=== PATIENT | female | born 1995 | race Caucasian/White ===

== ENCOUNTER 2019-03-04 13:43 | Emergency (ER) | payer BC ==
--- NOTE | 2019-03-04 14:18 | ER Document Report ---
HPI - HPI Patient complains to provider of: vaginal pain Time Seen by Provider: 03/04/19 14:14 Onset: This morning Onset/Duration: Sudden Quality of pain: Achy Pain Level: 1 Context: 23-year-old female presents today with complaints that she had a bowel movement and she felt something protruding from her vagina afterwards. Reports she just had a baby 10 weeks ago vaginal no complications. Reports she has had constipation since that time. She did have a follow-up visit with her [facility] LPN. She reports that she just moved here to [place]. Denies other symptoms such as fever vomiting diarrhea. Denies vaginal discharge. Denies pain with void. Denies abdominal pain. Associated Symptoms: None Exacerbated by: Denies Relieved by: Denies - REPRODUCTIVE Reproductive: DENIES: : Past Medical History - General Information source: Patient Last Menstrual Period: last week - Social History Smoking Status: Never Smoker Chew tobacco use (# tins/day): No Frequency of alcohol use: None Drug Abuse: None Lives with: Family Family History: None Patient has suicidal ideation: No Patient has homicidal ideation: No - Medical History Medical History: Negative Surgical Hx: Negative Vertical Provider Document - CONSTITUTIONAL Agree With Documented VS: Yes Exam Limitations: No Limitations General Appearance: WD/WN - INFECTION CONTROL TRAVEL OUTSIDE OF THE [place] IN LAST 30 DAYS: No - HEENT HEENT: Atraumatic, Normocephalic - NECK Neck: Normal Inspection, Supple. negative: Lymphadenopathy-Left, Lymphadenopathy-Right - RESPIRATORY Respiratory: Breath Sounds Normal, No Respiratory Distress - CARDIOVASCULAR Cardiovascular: Regular Rate - GI/ABDOMEN Gastrointestinal: Abdomen Soft, Abdomen Non-Tender - REPRODUCTIVE Female Genitalia: Normal Inspection - MUSCULOSKELETAL/EXTREMETIES Musculoskeletal/Extremeties: RAUL RODRIGUEZ - NEURO Level of Consciousness: Awake, Alert, Appropriate Motor/Sensory: No Motor Deficit - DERM Integumentary: Warm, Dry Course - Re-evaluation Re-evalutation: 03/04/19 15:17 23-year-old female presents emergency department with reports that she felt like her vagina was bulging after she had a bowel movement. Pelvic was completed no bulge or swelling noted. Patient was instructed on the importance of follow-up with her primary care provider or TRAINING PROGRAM MANAGER for recheck. We discussed rectal and bladder prolapse. She was instructed to return for difficulty voiding or bowel movement she was also instructed on stool softener. She verbalized an underst anding to all instructions. Dictation of this chart was performed using voice recognition software; therefore, there may be some unintended grammatical errors. - Vital Signs Vital signs: Temp Pulse Resp BP Pulse Ox 98 F 81 18 145/78 H 99 03/04/19 14:14 03/04/19 14:14 03/04/19 14:14 03/04/19 14:14 03/04/19 14:14 Procedures - Pelvic Exam Pelvic exam Time completed: 15:16 Cultures obtained: No Wet prep obtained: No Herpes culture obtained: No POC sent to lab: No Foreign body removed: No Bimanual exam performed: Yes - no swelling/bulge noted Witnessed by: katheryn eugene Discharge - Discharge Clinical Impression: Vaginal bulge Condition: Stable Disposition: HOME, SELF-CARE Instructions: [facility] Doctors Additional Instructions: *You have been evaluated for vaginal bulge *Follow up with a CHARGE LPN or the health department for recheck within one week *Avoid sexual intercourse until follow up *Return to ED for worsening condition, changes, needs Monitor your blood pressure. Your blood pressure was elevated today. This may be because you were anxious, in pain or because you need medication. It is im portant to follow up with your primary care provider for full evaluation. Forms: Elevated Blood Pressure
[2019-03-04 15:25] LABS: APPEARANCE,URINE CLEAR; BILIRUBIN,URINE NEGATIVE (NEGATIVE); COLOR,URINE YELLOW; GLUCOSE, URINE NEGATIVE (NEGATIVE); KETONES,URINE NEGATIVE (NEGATIVE); LEUKOCYTE ESTERASE,URINE NEGATIVE (NEGATIVE); NITRITE,URINE NEGATIVE (NEGATIVE); PROTEIN,URINE NEGATIVE (NEGATIVE); URINE SPECIFIC GRAVITY 1.019; UROBILINOGEN,URINE NEGATIVE mg/dL (<2.0)
[2019-03-04 15:36] VITALS: BP 108/57
== END 2019-03-04 15:21 | disposition home or self-care (01) ==
LOC: ER 13:43
DX: R22.2 Localized swelling, mass and lump, trunk (principal); R10.2 Pelvic and perineal pain
CPT/HCPCS: 81001; 81025; 99283